=== PATIENT | male | born 1965 | race Caucasian/White ===

== ENCOUNTER 2023-02-06 14:38 | Outpatient (CLI) | payer BC, SELFPAY ==
--- NOTE | ~2023-02-06 | MR_ITS ---
EXAMINATION: MR elbow RT wo/w con DATE: 02/06/2023 15:31 INDICATION: Strain of muscle, fascia and tendon of right elbow. TECHNIQUE: Magnetic resonance imaging (MRI) of the right elbow was performed without intravenous cont rast. COMPARISON: None. FINDINGS: There is a complete tear of distal biceps tendon. IMPRESSION: 1. Complete tear of distal biceps tendon. 2. The patient refused additional imaging after a single sequence. Reviewed, dictated and finalized at location A.
== END 2023-02-06 14:39 | disposition home or self-care (01) ==
PROVIDERS: PCP Internal Medicine; Visit Provider Internal Medicine
DX: S46.212A Strain of muscle, fascia and tendon of other parts of biceps, left arm, initial encounter (principal); X58.XXXA Exposure to other specified factors, initial encounter
CPT/HCPCS: 73223

== ENCOUNTER 2023-06-20 10:22 | Outpatient (CLI) | payer BC, SELFPAY ==
--- NOTE | ~2023-06-20 | XR_ITS ---
Clinical Indication: Cough PA and lateral views of the chest: Comparison: None Findings: The lungs are clear, without evidence of focal consolidation or pleural effusion. Cardiome diastinal silhouette is within normal limits. Mild compression deformity of the mid thoracic spine no leah. Impression: Clear lungs. Mild compression deformity of the mid thoracic spine. Reviewed, dictated and finalized at location . [employer] Impression: Clear lungs. Mild compression deformity of the mid thoracic spine.
== END 2023-06-20 10:23 | disposition home or self-care (01) ==
PROVIDERS: PCP Internal Medicine; Visit Provider Internal Medicine
DX: R05.9 Cough, unspecified (principal); R06.2 Wheezing
CPT/HCPCS: 71046

== ENCOUNTER 2023-10-19 13:15 | Outpatient (CLI) | payer BC, SELFPAY ==
--- NOTE | ~2023-10-19 | US_ITS ---
US scrotum doppler INDICATION: Right lower quadrant pain TECHNIQUE: Testicular sonogram utilizing grayscale and color Doppler FINDINGS: The testes are normal in size and appearance. No focal lesions are seen. The right testes measures 4.3 x 2.1 x 3.5 cm centimeters, and the left testis measures 4.6 x 2.4 x 3.2 cm cm. There is slightly increased vascularity to the right testicle. The right and left epididymides appear normal. There is no varicocele or hydrocele. IMPRESSION: 1. Mildly increased vascularity of the right testicle compared to the left, nonspecific. Consider or chitis in the appropriate clinical setting. Reviewed, dictated and finalized at location L. IMPRESSION: 1. Mildly increased vascularity of the right testicle compared to the left, no nspecific. Consider orchitis in the appropriate clinical setting.
== END 2023-10-19 13:16 | disposition home or self-care (01) ==
LOC: ANHIMG 13:17
PROVIDERS: PCP Internal Medicine; Visit Provider Internal Medicine
DX: N50.1 Vascular disorders of male genital organs (principal)
CPT/HCPCS: 76870; 93976

== ENCOUNTER 2023-10-20 11:05 | Outpatient (CLI) | payer BC, SELFPAY ==
--- NOTE | ~2023-10-20 | US_ITS ---
EXAMINATION: US soft tissue groin RT DATE: 10/20/2023 12:03 INDICATION: Right lower quadrant abdominal pain. TECHNIQUE: Multiple grayscale and Doppler ultrasound images of the right groin were obtained. COMPARISON: Ultrasound 10/19/2023 FINDINGS: There is no mass, lymphadenopathy, or hernia in right inguinal region. IMPRESSION: 1. No abnormality in right inguinal region. Reviewed, dictated and finalized at location A.
== END 2023-10-20 11:06 | disposition home or self-care (01) ==
LOC: ANHIMG 11:06
PROVIDERS: PCP Internal Medicine; Visit Provider Internal Medicine
DX: R10.31 Right lower quadrant pain (principal)
CPT/HCPCS: 76882

== ENCOUNTER 2024-02-05 09:01 | Outpatient (CLI) | payer BC, SELFPAY ==
--- NOTE | ~2024-02-05 | CT_ITS ---
CT of the Abdomen and Pelvis: Indication: Abdominal pain Technique: 2.5 mm axial scans were obtained through the abdomen and pelvis following intravenous adm inistration of 100 cc of Omnipaque 350. Dose reduction technique was used on this scan by utilizing a utomated exposure control and iterative reconstruction technique. The dose-length product (DLP) was 1 511.98 mGy-cm. Findings: Scans through the lung bases are unremarkable. Probable diffuse hepatic steatosis. The spleen, pancreas, gallbladder, adrenals and kidneys are withi n normal limits. No evidence of aortic aneurysm. No lymphadenopathy. No bowel obstruction or bowel wall thickening. There is no evidence to suggest acute appendicitis. Images through the pelvis were performed. Urinary bladder unremarkable. No pelvic mass seen. No ascit es. Impression: No acute abnormalities seen. Probable diffuse hepatic steatosis. Reviewed, dictated and finalized at [facility]. Impression: No acute abnormalities seen. Probable diffuse hepatic steatosis.
[2024-02-05 09:17] LABS: Basophils Absolute Auto 0.1 K/mm3 (0.0-0.1); Eosinophils Absolute Auto 0.6 K/mm3 (0-0.3); Eosinophils Percent Auto 8.3 % (0-4.4); Hematocrit 47.1 % (42.0-52.0); Hemoglobin 15.7 g/dL (14.0-18.0); Immature Granulocyte Absolute 0.02 K/mm3 (0.00-0.031); Immature Granulocyte Percent A 0.3 % (0-0.5); Mean Corpuscular HGB Conc 33.3 g/dl (32-36); Mean Corpuscular Hemoglobin 31.9 pg (26-34); Mean Corpuscular Volume 95.7 fl (80-100); Mean Platelet Volume 10.7 fl (7.4-10.4); Monocytes Absolute Auto 0.7 K/mm3 (0.1-0.6); Monocytes Percent Auto 9.6 % (2.6-8.5); Neutrophils Absolute Auto 3.2 K/mm3 (1.3-6.7); Neutrophils Percent Auto 46.8 % (45.5-73.1); Platelet Count Result 184 k/mm3 (150-375); Red Blood Count 4.92 M/mm3 (4.6-6.20); Red Cell Distribution Width 13.1 % (11.5-14.5); White Blood Count 6.8 K/mm3 (4.5-10.0)
[2024-02-05 09:27] LABS: Alanine Aminotransferase 38 U/L (6-50); Albumin Level 4.6 g/dL (3.5-5.1); Alkaline Phosphatase 54 U/L (38-126); Amylase 76 U/L (30-110); Anion Gap 10 mmol/L (4-12); Aspartate Amino Transferase 36 U/L (17-59); Bilirubin,Total 0.6 mg/dL (0.2-1.3); Blood Urea Nitrogen 16 mg/dL (9-20); Calcium 8.9 mg/dL (8.4-10.2); Carbon Dioxide 24 mmol/L (22-30); Chloride 105 mmol/L (98-107); Estimated Glomerular Filt Rate > 60; Glucose 103 mg/dL (65-110); Lactate Dehydrogenase 156 U/L (120-246); Lipase 330 U/L (23-300); Potassium 4.2 mmol/L (3.4-5.0); Sodium 139 mmol/L (137-145)
== END 2024-02-05 09:02 | disposition home or self-care (01) ==
LOC: ANHIMG 09:02
PROVIDERS: PCP Internal Medicine; Visit Provider Internal Medicine
DX: R10.9 Unspecified abdominal pain (principal); R19.4 Change in bowel habit
CPT/HCPCS: 36415; 74177; 80053; 82150; 83615; 83690; 85025; Q9967